=== PATIENT | female | born 1940 | race Caucasian/White ===

== ENCOUNTER 2021-01-22 14:00 | Outpatient (CLI) | payer MEDICARE ==
[2021-01-22] MEDS ORDERED: LIDOCAINE 2% JEL 5 ML TUBE ONE (14:37)
== END 2021-01-22 23:59 | disposition home or self-care (01) ==
LOC: WOU 14:00
PROVIDERS: ATTEND Podiatrist Foot & Ankle Surgery
DX: L89.893 Pressure ulcer of other site, stage 3 (principal); L84 Corns and callosities; M20.12 Hallux valgus (acquired), left foot; M20.11 Hallux valgus (acquired), right foot; M20.42 Other hammer toe(s) (acquired), left foot; M20.41 Other hammer toe(s) (acquired), right foot; M77.42 Metatarsalgia, left foot; M77.41 Metatarsalgia, right foot; M79.672 Pain in left foot; M79.671 Pain in right foot; M19.90 Unspecified osteoarthritis, unspecified site
CPT/HCPCS: 11042; A6209; G0463

== ENCOUNTER 2021-10-21 10:50 | Outpatient (CLI) | payer MEDICARE, OTHER | END 2021-10-21 23:59 | disposition home or self-care (01) | LOC: WOU 10:50 | PROVIDERS: ATTEND Podiatrist Foot & Ankle Surgery | DX: L84 Corns and callosities (principal); M20.12 Hallux valgus (acquired), left foot; M20.11 Hallux valgus (acquired), right foot; M20.42 Other hammer toe(s) (acquired), left foot; M20.41 Other hammer toe(s) (acquired), right foot; M77.42 Metatarsalgia, left foot; M77.41 Metatarsalgia, right foot; M79.672 Pain in left foot; M79.671 Pain in right foot; I10 Essential (primary) hypertension | CPT/HCPCS: G0463 ==

== ENCOUNTER 2022-05-26 11:40 | Outpatient (CLI) | payer MEDICARE, OTHER | END 2022-05-26 23:59 | disposition home or self-care (01) | LOC: WOU 11:40 | PROVIDERS: ATTEND Podiatrist Foot & Ankle Surgery | DX: L84 Corns and callosities (principal); M20.42 Other hammer toe(s) (acquired), left foot; M20.41 Other hammer toe(s) (acquired), right foot; M20.12 Hallux valgus (acquired), left foot; M20.11 Hallux valgus (acquired), right foot; M77.42 Metatarsalgia, left foot; M77.41 Metatarsalgia, right foot; M79.672 Pain in left foot; M79.671 Pain in right foot; Z79.82 Long term (current) use of aspirin | CPT/HCPCS: G0463 ==